=== PATIENT | female | born 1960 | race Two or more races ===

== ENCOUNTER 2017-10-08 10:11 | Outpatient (CLI) | payer OTHER | END 2017-10-08 10:16 | disposition home or self-care (01) | LOC: RAD 10:11 | DX: D21.0 Benign neoplasm of connective and other soft tissue of head, face and neck (principal); Z01.811 Encounter for preprocedural respiratory examination ==

== ENCOUNTER 2017-10-24 04:45 | Day surgery (SDC) | payer OTHER ==
[~2017-10-24 04:45] MED LIST: AVAPRO150 MG PO; JANUMET 50-5001 EACH PO; NEURONTIN300 MG PO; SYNTHROID125 MCG PO; TRILIPIX135 MG PO; VITAMIN B-1000.4 MG PO; ZETIA10 MG PO
== END 2017-10-24 10:15 | disposition home or self-care (01) ==
LOC: CIR.AMB 04:45
DX: D17.0 Benign lipomatous neoplasm of skin and subcutaneous tissue of head, face and neck (principal)

== ENCOUNTER 2017-11-15 11:18 | Outpatient (CLI) | payer OTHER | END 2017-11-15 16:55 | disposition home or self-care (01) | LOC: RAD 11:18 | DX: J01.41 Acute recurrent pansinusitis (principal) ==

== ENCOUNTER 2018-03-05 10:44 | Outpatient (CLI) | payer OTHER | END 2018-03-05 10:51 | disposition home or self-care (01) | LOC: MAMO-SONO 10:44 | DX: R92.0 Mammographic microcalcification found on diagnostic imaging of breast (principal) ==

== ENCOUNTER 2018-06-20 07:44 | Outpatient (CLI) | payer OTHER | END 2018-06-20 08:01 | disposition home or self-care (01) | LOC: NUCLEAR 07:44 | DX: R94.31 Abnormal electrocardiogram [ECG] [EKG] (principal); E11.10 Type 2 diabetes mellitus with ketoacidosis without coma; E78.3 Hyperchylomicronemia; I25.10 Atherosclerotic heart disease of native coronary artery without angina pectoris | CPT/HCPCS: 78452; 93017; A9500; J0153 ==

== ENCOUNTER 2018-09-22 10:55 | Outpatient (CLI) | payer OTHER | END 2018-09-22 14:57 | disposition home or self-care (01) | LOC: MAMO-SONO 10:55 | DX: D24.2 Benign neoplasm of left breast (principal) ==

== ENCOUNTER 2018-11-25 13:23 | Outpatient (CLI) | payer OTHER | END 2018-11-25 13:46 | disposition home or self-care (01) | LOC: RAD 13:23 | DX: M19.079 Primary osteoarthritis, unspecified ankle and foot (principal) ==

== ENCOUNTER → 2019-09-24 | Outpatient (CLI) | payer OTHER | END | disposition home or self-care (01) | LOC: MAMO-SONO 10:15 | DX: Z12.31 Encounter for screening mammogram for malignant neoplasm of breast (principal); Z87.898 Personal history of other specified conditions; R92.0 Mammographic microcalcification found on diagnostic imaging of breast ==

== ENCOUNTER → 2019-10-05 | Outpatient (CLI) | payer OTHER | END | disposition home or self-care (01) | LOC: TOM 09:45 | DX: K43.2 Incisional hernia without obstruction or gangrene (principal) ==

== ENCOUNTER 2019-11-14 10:00 | Outpatient (CLI) | payer OTHER | END 2019-11-14 10:02 | disposition home or self-care (01) | LOC: SONOGRAMA 10:00 → MAMO-SONO 10:15 | DX: E04.1 Nontoxic single thyroid nodule (principal) ==

== ENCOUNTER 2019-11-25 07:00 | Inpatient (IN) | payer OTHER ==
[~2019-11-25] VITALS: Ht 157.5 cm; Wt 87.5 kg
[2019-11-25] MEDS ORDERED: ZYLOPRIM100 M1 PO (10:42)
[2019-11-25] MEDS ORDERED: IBU800 MG PO (10:43)
[2019-12-04] MEDS ORDERED: VITAMIN D35000 UNI2 PO (08:10)
[2019-12-04] MEDS ORDERED: VITAMIN B-625 MG PO (08:11)
[2019-12-05] MEDS ORDERED: TYLENOL ARTHRI650 MG PO (09:35)
[2019-12-05] MEDS ORDERED: NEURONTIN300 MG PO (09:35)
[2019-12-05] MEDS ORDERED: ULTRAM50 MG PO (09:35)
== END 2019-12-05 15:13 | disposition home or self-care (01) | DRG 354 ==
LOC: SURH 12-03 07:45 → O/R 12-03 07:45 → SURH 12-03 13:30 → SURG 12-03 20:51
PROVIDERS: ADMIT Surgery
PROC: 0WUF0JZ Supplement Abdominal Wall with Synthetic Substitute, Open Approach (ICD-10-PCS; 2019-12-03)
PROC: 0WJF4ZZ Inspection of Abdominal Wall, Percutaneous Endoscopic Approach (ICD-10-PCS; 2019-12-03)
PROC: 0WUF0JZ Supplement Abdominal Wall with Synthetic Substitute, Open Approach (ICD-10-PCS; principal; 2019-12-03 13:30)
PROC: 4A19X1Z Monitoring of Respiratory Capacity, External Approach (ICD-10-PCS; 2019-12-04)
DX: K43.0 Incisional hernia with obstruction, without gangrene (principal); N17.9 Acute kidney failure, unspecified; Z53.31 Laparoscopic surgical procedure converted to open procedure; K42.0 Umbilical hernia with obstruction, without gangrene; E11.42 Type 2 diabetes mellitus with diabetic polyneuropathy; I10 Essential (primary) hypertension; E03.9 Hypothyroidism, unspecified; G47.33 Obstructive sleep apnea (adult) (pediatric)

== ENCOUNTER 2020-03-29 06:10 | Day surgery (SDC) | payer OTHER ==
[~2020-03-29 06:10] MED LIST changes: +IBU800 MG PO; +INDOCIN25 MG/5 ML PO; +TRILIPIX PO; +TYLENOL ARTHRI650 MG PO; +ULTRAM50 MG PO; +VITAMIN B-625 MG PO; +VITAMIN D35000 UNI2 PO; +ZYLOPRIM100 M1 PO
[2020-03-29] MEDS ORDERED: INDOMETHACIN75 MG PO (09:59)
[2020-03-29] MEDS ORDERED: CIPRO500 MG PO (09:59)
[2020-03-29] MEDS ORDERED: ULTRACET PO (09:59)
== END 2020-03-29 13:35 | disposition home or self-care (01) ==
LOC: CIR.AMB 06:10 → ADM 09:45 → CIR.AMB 13:35
PROVIDERS: ATTEND Orthopaedic Surgery
DX: S83.241A Other tear of medial meniscus, current injury, right knee, initial encounter (principal); S83.281A Other tear of lateral meniscus, current injury, right knee, initial encounter; M94.261 Chondromalacia, right knee; M23.41 Loose body in knee, right knee

== ENCOUNTER 2020-10-31 13:13 | Outpatient (CLI) | payer OTHER ==
[~2020-10-31 13:13] MED LIST changes: +CIPRO500 MG PO; +INDOMETHACIN75 MG PO; +ULTRACET PO
== END 2020-10-31 13:23 | disposition home or self-care (01) ==
LOC: RAD 13:13 → MAMO-SONO 13:15 → RAD 13:23
PROVIDERS: ATTEND Specialist
DX: N60.12 Diffuse cystic mastopathy of left breast (principal); N60.01 Solitary cyst of right breast; M17.0 Bilateral primary osteoarthritis of knee

== ENCOUNTER 2022-07-10 13:10 | Outpatient (CLI) | payer OTHER | END 2022-07-10 13:20 | disposition home or self-care (01) | LOC: RAD 13:10 | PROVIDERS: ATTEND General Practice | DX: M16.0 Bilateral primary osteoarthritis of hip (principal) ==